=== PATIENT | male | born 1980 | race Caucasian/White ===

== ENCOUNTER 2018-11-20 11:48 | Emergency (ER) | payer SELFPAY ==
[~2018-11-20] VITALS: Ht 182.9 cm; Wt 49.0 kg
[2018-11-20 12:00] VITALS: BP 133/85
[2018-11-20] MEDS ORDERED: cefTRIAXone IM 1 GM VIAL IM ONE (12:30)
[2018-11-20] MEDS ORDERED: HYDR-3164 PO (13:02)
[2018-11-20] MEDS ORDERED: NAPR-683 PO (13:02)
[2018-11-20] MEDS ORDERED: PENI500T PO (13:02)
--- NOTE | 2018-11-20 13:02 | PHYS DOC ---
Past Medical History Past Medical History: No Pertinent History Additional Past Surgical Histo: chest tube x2 Alcohol Use: None Drug Use: None Adult General Chief Complaint Chief Complaint: DENTAL PROBLEM HPI HPI Patient is a 38 year old male who presents with complaining of pain. Patient states he has had right upper jaw and facial swelling with tooth pain since yesterday and took 1000 mg of Keflex without improvement of his pain. Patient states the swelling of his face became worse several hours after taking Keflex. Patient has history of 15 years of smoking with poor dental hygiene and lots of missing tooth and dental caries. Patient denies fever and chills, vomiting and diarrhea, chest pain and shortness of breath. Review of Systems Review of Systems Constitutional: Denies fever or chills [] Eyes: Denies change in visual acuity, redness, or eye pain [] HENT: Denies nasal congestion or sore throat [] Respiratory: Denies cough or shortness of breath [] Cardiovascular: No additional information not addressed in HPI [] GI: Denies abdominal pain, nausea, vomiting, bloody stools or diarrhea [] : Denies dysuria or hematuria [] Musculoskeletal: Denies back pain or joint pain [] Integument: Denies rash or skin lesions [] Neurologic: Denies headache, focal weakness or sensory changes [] Endocrine: Denies polyuria or polydipsia [] All other systems were reviewed and found to be within normal limits, except as documented in this note. Current Medications Current Medications Current Medications Medications (Trade) Dose Ordered Sig/Penny Start Time Stop Time Status Last Admin Dose Admin Ceftriaxone Sodium (Rocephin Im) 1 gm 1X ONCE 11/20/18 12:30 11/20/18 12:31 DC 11/20/18 12:42 1 GM Allergies Allergies Allergies Coded Allergies Type Severity Reaction Last Updated Verified No Known Drug Allergies 11/20/18 No Physical Exam Physical Exam Constitutional: Well developed, well nourished, mild distress, non-toxic appearance. [] HENT: Normocephalic, atraumatic. Poor dental hygiene with multiple missing teeth and cavities, tooth #6 with tenderness on abscessed, mild facial edema. Eyes: PERRLA, EOMI, conjunctiva normal, no discharge. [] Neck: Normal range of motion, no tenderness, supple, no stridor. [] Cardiovascular:Heart rate regular rhythm, no murmur [] Lungs & Thorax: Bilateral breath sounds clear to auscultation [] Neurologic: Alert and oriented X 3, no focal deficits noted. [] Psychologic: Affect normal, judgement normal, mood normal. [] Current Patient Data Vital Signs Vital Signs Date Time Temp Pulse Resp B/P (MAP) Pulse Ox O2 Delivery O2 Flow Rate FiO2 11/20/18 12:00 98.3 82 16 133/85 (101) 97 Room Air 98.3 EKG EKG [] Radiology/Procedures Radiology/Procedures [] Course & Med Decision Making Course & Med Decision Making Evaluation of patient in ER showed 38-year-old male patient with dental abscess and facial edema. Patient treated with Rocephin IM in ER and didn't want to have pain medication. Patient was advised to quit smoking and follow up with a dentist. Dragon Disclaimer Dragon Disclaimer This electronic medical record was generated, in whole or in part, using a voice recognition dictation system. Departure Departure Impression: Primary Impression: Dental abscess Additional Impressions: Dental caries Facial cellulitis Tobacco abuse Tobacco abuse counseling Disposition: HOME, SELF-CARE (at 1259) Condition: STABLE Referrals: NO PCP (PCP) Patient Instructions: Cellulitis, Dental Abscess, Dental Caries, Smoking C essation, Tips For Success Additional Instructions: Drink plenty of liquids Follow-up with your dentist in 3-5 days Return to ER if not getting better Scripts Penicillin V Potassium (PENICILLIN V POTASSIUM) 500 Mg Tablet 2 TAB PO Q12HR, #40 TAB Prov: YARITZA DESIR MD 11/20/18 Hydrocodone/Apap 5-325 (NORCO 5-325 TABLET) 1 Each Tablet 1 TAB PO PRN Q6HRS PRN for PAIN, #10 TAB 0 Refills Prov: YARITZA DESIR MD 11/20/18 Naproxen (NAPROSYN) 500 Mg Tablet 1 TAB PO BID for pain, #20 TAB Prov: YARITZA DESIR MD 11/20/18 Problem Qualifiers YARITZA DESIR MD Nov 20, 2018 13:02
== END 2018-11-20 13:05 | disposition home or self-care (01) ==
LOC: ER 11:48
DX: K04.7 Periapical abscess without sinus (principal); K02.9 Dental caries, unspecified; L03.211 Cellulitis of face; Z71.6 Tobacco abuse counseling
CPT/HCPCS: 96372; 99283; J0696